=== PATIENT | male | born 1945 | race Caucasian/White ===

== ENCOUNTER 2023-07-03 10:54 | Inpatient (IN) | payer MEDICARE ==
[~2023-07-03] VITALS: Ht 167.6 cm; Wt 66.7 kg
[2023-07-03 11:15] LABS: BASOPHILS ABSOLUTE AUTO 0.08 K/mm3 (0.00-0.23); BASOPHILS PERCENT AUTO 0 % (0-2); EOSINOPHILS ABSOLUTE AUTO 0.12 K/mm3 (0.00-0.68); EOSINOPHILS PERCENT AUTO 1 % (0-6); Hematocrit 34.4 % (37.0-53.0); Hemoglobin 10.3 g/dL (13.5-17.5); IMMATURE GRAN ABSOLUTE AUTO 0.11 K/mm3 (0.00-0.10); IMMATURE GRAN PERCENT AUTO 1 % (0-1); LYMPHOCYTES ABSOLUTE AUTO 1.64 K/mm3 (0.84-5.20); LYMPHOCYTES PERCENT AUTO 9 % (21-46); MONOCYTES ABSOLUTE AUTO 0.63 K/mm3 (0.16-1.47); MONOCYTES PERCENT AUTO 4 % (4-13); Mean Corpuscular HGB 21.5 pg (26.0-34.0); Mean Corpuscular HGB Conc 29.9 g/dL (31.5-36.5); Mean Corpuscular Volume 72 fL (80-100); Mean Platelet Volume 9.6 fL (9.1-12.4); NEUTROPHILS ABSOLUTE AUTO 15.35 K/mm3 (1.96-9.15); NEUTROPHILS PERCENT AUTO 86 % (41-73); Platelet Count 324 K/mm3 (150-400); RDW Coefficient Variation 25.3 % (11.7-14.2); RDW Standard Deviation 64.5 fL (35.1-46.3); Red Blood Cell Count 4.79 M/mm3 (4.30-5.90); White Blood Cell Count 17.93 K/mm3 (4.00-11.30)
[2023-07-03 11:40] LABS: Albumin, Blood 3.4 g/dL (3.4-5.0); Bilirubin, Total 0.5 mg/dL (0.1-1.0); Bun/Creatinine Ratio 18.9 (12.0-20.0); Calcium, Blood 8.7 mg/dL (8.5-10.1); Creatinine, Blood 1.06 mg/dL (0.60-1.20); Globulin, Blood 3.3 g/dL (2.2-4.0); Potassium, Blood 4.1 mmol/L (3.5-5.5); Total Protein, Blood 6.7 g/dL (6.4-8.2)
[2023-07-03 17:14] LABS: Hematocrit 28.4 % (37.0-53.0); Hemoglobin 8.7 g/dL (13.5-17.5)
[2023-07-03 19:42] LABS: Percent Saturation 7.9 % (20.0-50.0)
[2023-07-03 21:00] VITALS: BP 131/89
--- NOTE | 2023-07-03 21:45 | NUR ---
ADMISSION REPORT RECEIVED FROM ER NURSE. PATIENT ARRIVES TO PCU 14. SLID OVER TO BED WITH ASSISTANCE. PATIENT'S SON ACCOMPANYING. PATIENT CHANGED INTO [facility] PATIENT ANSWERING QUESTIONS APPROPRIATELY. VITALS STABLE AT THIS TIME, PATIENT ON RA WITH O2 SAT >90%. NO SIGNS OF BLEEDING OUT OF RECTUM AT THIS TIME. PER REPORT, NO BM SINCE ARRIVAL TO ER. PATIENT ORIENTED TO ROOM AND CALL LIGHT SYSTEM. BED IN LOW POSITION.
[2023-07-03 22:01] LABS: Hematocrit 28.6 % (37.0-53.0); Hemoglobin 8.8 g/dL (13.5-17.5)
[2023-07-04 00:39] VITALS: BP 155/77
[2023-07-04 03:38] VITALS: BP 129/88
[2023-07-04 03:48] LABS: BASOPHILS ABSOLUTE AUTO 0.07 K/mm3 (0.00-0.23); BASOPHILS PERCENT AUTO 1 % (0-2); EOSINOPHILS ABSOLUTE AUTO 0.23 K/mm3 (0.00-0.68); EOSINOPHILS PERCENT AUTO 2 % (0-6); Hemoglobin 8.6 g/dL (13.5-17.5); IMMATURE GRAN ABSOLUTE AUTO 0.04 K/mm3 (0.00-0.10); IMMATURE GRAN PERCENT AUTO 0 % (0-1); LYMPHOCYTES ABSOLUTE AUTO 1.28 K/mm3 (0.84-5.20); LYMPHOCYTES PERCENT AUTO 12 % (21-46); MONOCYTES ABSOLUTE AUTO 0.97 K/mm3 (0.16-1.47); MONOCYTES PERCENT AUTO 9 % (4-13); Mean Corpuscular HGB 21.8 pg (26.0-34.0); Mean Corpuscular HGB Conc 30.7 g/dL (31.5-36.5); Mean Corpuscular Volume 71 fL (80-100); Mean Platelet Volume 9.8 fL (9.1-12.4); NEUTROPHILS ABSOLUTE AUTO 8.24 K/mm3 (1.96-9.15); NEUTROPHILS PERCENT AUTO 76 % (41-73); Platelet Count 224 K/mm3 (150-400); RDW Standard Deviation 62.2 fL (35.1-46.3); Red Blood Cell Count 3.95 M/mm3 (4.30-5.90); White Blood Cell Count 10.83 K/mm3 (4.00-11.30)
[2023-07-04 04:05] LABS: Bun/Creatinine Ratio 15.7 (12.0-20.0); Calcium, Blood 8.2 mg/dL (8.5-10.1); Creatinine, Blood 1.02 mg/dL (0.60-1.20)
--- NOTE | 2023-07-04 06:16 | NUR ---
SHIFT SUMMARY PATIENT ALERT AND ORIENTED x4 BUT CAN BE FORGETFUL. BP STABLE, ON RA WITH SPO2 >90%, TELE READING SR DURING THE NIGHT. NO SIGNS OF BLEEDING FROM RECTUM DURING THE NIGHT, NO BM. PATIENT CONTINENT/INCONTINENT, ATTENDS IN PLACE AND PATIENT USING URINAL WITH ASSISTANCE. TURNING SELF IN BED INDEPENDENTLY. NO OTHER CHANGES, WILL REPORT TO DAY SHIFT RN.
--- NOTE | 2023-07-04 06:17 | NUR ---
SHIFT SUMMARY PATIENT ALERT AND ORIENTED x4, ABLE TO MAKE NEEDS KNOWN TO STAFF. BP STABLE. TELE READING SR WTH BBB, OCCASIONAL VTACH BEATS. SEE PREVIOUS NOTE REGARDING TELE CHANGES. DENIED CHEST PAIN. REFUSING TO WEAR CPAP OVERNIGHT REGARDLESS OF DESATTING INTO LOW 80s AT TIMES, PATIENT STATNG "I JUST WANT TO BE LEFT ALONE". PUREWICK IN PLACE WITH SIGNIFICANT OUTPUT DURING THE NIGHT. STANDBY ASSIST IN ROOM. SIGNIFICANT OTHER AT BEDSIDE. NO OTHER CHANGES, WILL REPORT TO DAY SHIFT RN.
[2023-07-04 07:41] VITALS: BP 150/86
--- NOTE | 2023-07-04 10:27 | NUR ---
AM NOTE CARE MANAGEMENT CONSULT PLACED. PER REPORT, PT'S SON COLLEEN AND HIS ARE THE CURRENT CAREGIVER FOR THE PT BUT REQUESTED RECOURSES FOR PLACEMENT AFTER HOSPITAL D/C. PER REPORT, PT'S DAUGHTER IN LAW IS THE PRIMARY CAREGIVER FOR THE PT BUT ALSO HAS A SPECIAL NEEDS CHILD AND IS HAVING DIFFICULTY MANAGING THE CARE OF BOTH. CREDIT CONTROL ADMINISTRATOR IKE WILLINGHAM ALSO AWARE OF SOCIAL/LIVING SITUATION.
[2023-07-04 11:13] VITALS: BP 135/68
[2023-07-04 15:13] VITALS: BP 157/97
--- NOTE | 2023-07-04 16:59 | NUR ---
SHIFT SUMMARY PT IS ALERT AND ORIENTED X 4, HE APPEARS FORGETFUL AT TIMES BUT IS ABLE TO MAKE HIS NEEDS KNOWN AND ANSWERS QUESTIONS APPROPRIATELY. VSS, SPO2 MAINTAINED >95% VIA RA. HE DENIED FEELING SOB, HAVING CP/PRESSURE, NAUSEA/VOMITTING. HE DENIED FEELING ABD PAIN. HE HAD 2 BM'S W/OUT BLOOD. HE WAS INDEPENDENT IN ROOM AND APPEARED STEADY ON HIS FEET. HIS SON COLLEEN WAS AT THIS BEDSIDE THIS AM. PLEASE SEE PREVIOUS NOTE REGARDING CARE MANAGEMENT CONSULT. HE HAD POOR PO INTAKE BUT REPORTED THAT IT WAS A RESULT OF HX OF THROAT CA/RADIATION TREATMENT. FULL LIQ. DIET IN PLACE. PT NOW APPEARS TO BE WATCHING FOOTBALL ON TV, CALL LIGHT IS W/IN REACH.
[2023-07-04 19:36] VITALS: BP 136/83
[2023-07-05] VITALS: BP 138/88
[2023-07-05 04:03] VITALS: BP 143/94
--- NOTE | 2023-07-05 06:21 | NUR ---
SHIFT SUMMARY PATIENT ALERT AND ORIENTED, ABLE TO MAKE NEEDS KNOWN TO STAFF. BP STABLE, TELE READING SINUS RHYTHM WITH 1ST DEGREE BLOCK AND OCCASIONAL PVCs, REMAINED ON RA DURING THE NIGHT WITH SPO2 >95%. PATIENT INDEPENDENT IN THE ROOM AND AMBULATING INTO BATHROOM. ADEQUATE OUTPUT DURING THE NIGHT, NO BMs OR SIGNS OF RECTAL BLEEDING THIS SHIFT. NO OTHER CHANGES, WILL REPORT TO DAY SHIFT RN.
[2023-07-05 07:52] VITALS: BP 150/86
[2023-07-05 09:05] LABS: BASOPHILS ABSOLUTE AUTO 0.04 K/mm3 (0.00-0.23); BASOPHILS PERCENT AUTO 1 % (0-2); EOSINOPHILS ABSOLUTE AUTO 0.25 K/mm3 (0.00-0.68); EOSINOPHILS PERCENT AUTO 3 % (0-6); Hematocrit 26.4 % (37.0-53.0); Hemoglobin 8.2 g/dL (13.5-17.5); IMMATURE GRAN ABSOLUTE AUTO 0.04 K/mm3 (0.00-0.10); IMMATURE GRAN PERCENT AUTO 1 % (0-1); LYMPHOCYTES ABSOLUTE AUTO 1.21 K/mm3 (0.84-5.20); LYMPHOCYTES PERCENT AUTO 16 % (21-46); MONOCYTES ABSOLUTE AUTO 0.71 K/mm3 (0.16-1.47); MONOCYTES PERCENT AUTO 9 % (4-13); Mean Corpuscular HGB 21.9 pg (26.0-34.0); Mean Corpuscular HGB Conc 31.1 g/dL (31.5-36.5); Mean Corpuscular Volume 71 fL (80-100); Mean Platelet Volume 9.8 fL (9.1-12.4); NEUTROPHILS ABSOLUTE AUTO 5.51 K/mm3 (1.96-9.15); NEUTROPHILS PERCENT AUTO 71 % (41-73); Platelet Count 215 K/mm3 (150-400); Red Blood Cell Count 3.74 M/mm3 (4.30-5.90); White Blood Cell Count 7.76 K/mm3 (4.00-11.30)
[2023-07-05] MEDS ORDERED: PANT40 PO (10:25)
[2023-07-05] MEDS ORDERED: FERROUS GLUCON324 M2 PO (10:26)
--- NOTE | 2023-07-05 11:28 | NUR ---
DISCHARGE NOTE PT IS ALERT AND ORIENTED X 4, HE WAS ABLE TO MAKE HIS NEEDS KNOWN AND WAS INDEPENDENT IN THE UZAIR. VSS. HE HAD BM X2 YESTERDAY W/OUT BLOOD, H&H NOTED TO BE STABLE. HE DENIED ABD PAIN/TENDERNESS, FEELINGS OF NAUSEA, CHEST PAIN/PRESSURE AND SOB. PT'S SON COLLEEN WAS AT BEDSIDE WHEN THIS RN WENT OVER DISCHARGE INSTRUCTIONS INCLUDING NEED TO ESTABLISH A PCP SO GI REFERRAL COULD BE MADE WELL RE-CHECKING H&H LABS. OTHER INSTRUCTIONS INCLUDED MEDICATIONS AND EDUCATION REGARDING DIAGNOSIS AND MEDICATIONS. PT LEFT PCU AT APPROX. VIA WHEELCHAIR ESCORTED BY PILI JONES. HE LEFT W/ ALL OF HIS PERSONAL BELONGINGS.
== END 2023-07-05 10:55 | disposition home or self-care (01) | DRG 378 ==
LOC: ER 10:54 → PCU 10:55
PROVIDERS: Emergency Medicine; Internal Medicine; ADMIT Family Medicine
DX: K57.31 Diverticulosis of large intestine without perforation or abscess with bleeding (principal); D62 Acute posthemorrhagic anemia; R73.9 Hyperglycemia, unspecified; I95.9 Hypotension, unspecified; Z86.73 Personal history of transient ischemic attack (TIA), and cerebral infarction without residual deficits; Z85.818 Personal history of malignant neoplasm of other sites of lip, oral cavity, and pharynx; Z90.49 Acquired absence of other specified parts of digestive tract; Z79.1 Long term (current) use of non-steroidal anti-inflammatories (NSAID); Z87.891 Personal history of nicotine dependence
CPT/HCPCS: 36415; 74174; 80048; 80053; 82607; 82728; 82746; 82947; 83036; 83540; 83550; 85014; 85018; 85025; 86850; 86900; 86901; 93005; 93010; 96361; 96365; 96374-59; 96375-59; 96376; 99285-25; A9270; C9113; G0378; J2916; J7030; Q9967

== ENCOUNTER 2023-07-05 18:16 | Emergency (ER) | payer MEDICARE, OTHER ==
[~2023-07-05] VITALS: Ht 167.6 cm; Wt 65.8 kg
[~2023-07-05 18:16] MED LIST: FERROUS GLUCON324 M2 PO; PANT40 PO
[2023-07-05 19:22] LABS: BASOPHILS ABSOLUTE AUTO 0.06 K/mm3 (0.00-0.23); BASOPHILS PERCENT AUTO 0 % (0-2); EOSINOPHILS ABSOLUTE AUTO 0.31 K/mm3 (0.00-0.68); EOSINOPHILS PERCENT AUTO 2 % (0-6); Hematocrit 28.6 % (37.0-53.0); Hemoglobin 8.8 g/dL (13.5-17.5); IMMATURE GRAN ABSOLUTE AUTO 0.06 K/mm3 (0.00-0.10); IMMATURE GRAN PERCENT AUTO 0 % (0-1); LYMPHOCYTES ABSOLUTE AUTO 1.84 K/mm3 (0.84-5.20); LYMPHOCYTES PERCENT AUTO 13 % (21-46); MONOCYTES ABSOLUTE AUTO 1.43 K/mm3 (0.16-1.47); MONOCYTES PERCENT AUTO 10 % (4-13); Mean Corpuscular HGB 21.8 pg (26.0-34.0); Mean Corpuscular HGB Conc 30.8 g/dL (31.5-36.5); Mean Corpuscular Volume 71 fL (80-100); Mean Platelet Volume 9.4 fL (9.1-12.4); NEUTROPHILS ABSOLUTE AUTO 11.01 K/mm3 (1.96-9.15); NEUTROPHILS PERCENT AUTO 75 % (41-73); Platelet Count 306 K/mm3 (150-400); RDW Coefficient Variation 25.3 % (11.7-14.2); RDW Standard Deviation 64.4 fL (35.1-46.3); Red Blood Cell Count 4.03 M/mm3 (4.30-5.90); White Blood Cell Count 14.71 K/mm3 (4.00-11.30)
[2023-07-05 19:42] LABS: Albumin, Blood 3.6 g/dL (3.4-5.0); Bilirubin, Total 0.3 mg/dL (0.1-1.0); Bun/Creatinine Ratio 14.3 (12.0-20.0); Calcium, Blood 8.7 mg/dL (8.5-10.1); Creatinine, Blood 1.05 mg/dL (0.60-1.20); Globulin, Blood 3.7 g/dL (2.2-4.0); Potassium, Blood 3.5 mmol/L (3.5-5.5); Total Protein, Blood 7.3 g/dL (6.4-8.2)
[2023-07-05 21:46] LABS: Hematocrit 24.9 % (37.0-53.0); Hemoglobin 7.7 g/dL (13.5-17.5)
[2023-07-05 23:00] VITALS: BP 107/76
[2023-07-05 23:05] LABS: Influenza A, PCR NEGATIVE (NEGATIVE); Influenza B, PCR NEGATIVE (NEGATIVE); Resp Syncytial Virus, PCR NEGATIVE (NEGATIVE); SARS-Cov-2 (COVID-19) PCR, MMC NEGATIVE (NEGATIVE)
== END 2023-07-05 23:17 | disposition short-term general hospital (02) ==
LOC: ER 18:16
PROVIDERS: Emergency Medicine
DX: K92.1 Melena (principal); D62 Acute posthemorrhagic anemia; I95.9 Hypotension, unspecified; Z79.899 Other long term (current) drug therapy; Z86.73 Personal history of transient ischemic attack (TIA), and cerebral infarction without residual deficits
CPT/HCPCS: 0241U; 36430; 80053; 85014; 85018; 85025; 86850; 86900; 86901; 86923; 93005; 93010; 96361; 96374; 96375; 99285-25; C9113; J2405; J7030; P9016